=== PATIENT | male | born 1990 | race American Indian/Alaskan Native ===

== ENCOUNTER 2019-09-28 18:03 | Emergency (ER) | payer OTHER ==
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
[2019-09-28] MEDS ORDERED: HYDROcodone/ACETAMINOPHEN 5-325 MG TAB PO ONE (21:32)
[2019-09-28] MEDS ORDERED: IBUPROFEN 800 MG TAB PO ONE (21:32)
[2019-09-28] MEDS ORDERED: HYDROcodone/ACETAMINOPHEN 5-325 MG TAB ONE (21:33)
[2019-09-28] MEDS ORDERED: IBUPROFEN 800 MG TAB ONE (21:33)
== END 2019-09-28 22:40 | disposition left against medical advice (07) ==
LOC: ED 18:03
DX: M25.532 Pain in left wrist (principal); Z53.21 Procedure and treatment not carried out due to patient leaving prior to being seen by health care provider

== ENCOUNTER 2019-09-29 21:14 | Emergency (ER) | payer OTHER ==
[2019-09-30] MEDS ORDERED: CYCLOBENZAPRINE 10 MG TAB PO ONE (04:57)
[2019-09-30] MEDS ORDERED: KETOROLAC 60 MG/2 ML INJ IM ONE (04:57)
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
--- NOTE | 2019-09-30 05:43 | XRay Report ---
HISTORY:left wrist/forearm pain, please include elbow COMPARISON: None. TECHNIQUE: AP lateral views were obtained FINDINGS: Bones: No fracture or dislocation. Joint spaces: Maintained. Soft tissues: No significant abnormality. Additional findings: None. IMPRESSION: 1. No significant abnormality. Signer Name: Lobo King MD Signed: 09/30/2019 5:38 AM Workstation Name: [email or web address]
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
[2019-09-30 06:11] VITALS: BP 132/85
== END 2019-09-30 06:06 | disposition home or self-care (01) ==
LOC: ED 21:14
DX: S39.012A Strain of muscle, fascia and tendon of lower back, initial encounter (principal); M25.572 Pain in left ankle and joints of left foot; M25.562 Pain in left knee; M25.532 Pain in left wrist; V49.49XA Driver injured in collision with other motor vehicles in traffic accident, initial encounter; Y93.89 Activity, other specified; Y92.488 Other paved roadways as the place of occurrence of the external cause; Y99.8 Other external cause status
CPT/HCPCS: 72100; 73090; 99283; J1885